=== PATIENT | male | born 1990 | race Caucasian/White ===

== ENCOUNTER 2024-08-11 20:34 | Emergency (ER) | payer SELFPAY ==
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
[2024-08-11 20:42] VITALS: BP 157/90; PULSE 112; RESP 18; O2SAT 96; BMI 32.8
[2024-08-11 20:50] VITALS: BP 157/90; PULSE 97; RESP 20; O2SAT 95
--- NOTE | 2024-08-11 21:00 | PC.NURSE ---
pt agitated, pt appears to be getting aggressive with staff telling staff to take off c-collar now . Pt repeats self over and over. Per Dr. Herring c-collar may have off c-collar. Pt has ripped out IV. pt is in hallway attempting to leave. notified.
[2024-08-11 21:18] LABS: Alcohol Level 286 mg/dL (0-10)
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
--- NOTE | 2024-08-11 22:21 | PC.NURSE ---
PT HAS REFUSED VS.
--- NOTE | 2024-08-11 22:38 | PC.NURSE ---
Pt states she is not taking pt home while he is drunk. Pt voices concern for her safety d/t pt's intoxication.
--- NOTE | 2024-08-12 02:36 | PC.NURSE ---
pt awoke and requesting sandwich and phone call. pt contacted and stated she is on way. pt eating sandwich in room currently.
== END 2024-08-12 03:43 | disposition home or self-care (01) ==
PROVIDERS: Emergency Provider Emergency Medicine
DX: S09.8XXA Other specified injuries of head, initial encounter (principal); F10.129 Alcohol abuse with intoxication, unspecified; Y90.8 Blood alcohol level of 240 mg/100 ml or more; V89.2XXA Person injured in unspecified motor-vehicle accident, traffic, initial encounter
CPT/HCPCS: 36415; 70450; 72125; 80307; 99284